=== PATIENT | male | born 1955 | race Caucasian/White ===

== ENCOUNTER 2024-06-14 20:10 | Inpatient (IN) | payer BC, MEDICAID, MEDICARE ==
[~2024-06-14] VITALS: Ht 162.6 cm; Wt 64.1 kg
[~2024-06-14 20:10] MED LIST: NIFE10CA59 MT; [UNRECOGNIZED DRUG - OTHER]
[2024-06-14 20:33] LABS: CHLORIDE 98 mEq/L (98-107); POTASSIUM 4.1 mEq/L (3.5-5.1); SODIUM 133 mEq/L (136-145)
[2024-06-14 20:34] LABS: CALCIUM 9.1 mg/dL (8.7-10.4); CARBON DIOXIDE 26 mEq/L (21-32)
[2024-06-14 20:39] LABS: CREATININE 2.5 mg/dL (0.6-1.3); GLUCOSE 109 mg/dL (70-105); UREA NITROGEN BLOOD 17 mg/dL (9-23)
[2024-06-14 20:41] LABS: ALANINE AMINOTRANSFERASE 15 IU/L (10-49); ASPARTATE AMINOTRANSFERASE 33 IU/L (<34); BILIRUBIN DIRECT 0.2 mg/dL (<=3.0); BILIRUBIN TOTAL 0.4 mg/dL (0.1-1.0); TROPONIN I HIGH SENSITIVITY 27 ng/L (3.0-53)
[2024-06-14 20:42] LABS: HEMATOCRIT. 26.2 % (42.0-52.0); HEMOGLOBIN. 8.7 g/dL (14.0-18.0); MEAN CORPUSCULAR HEMOGLOBIN 31.3 pg (28.0-32.0); MEAN CORPUSCULAR HGB CONC 33.2 g/dL (31.0-37.0); MEAN CORPUSCULAR VOLUME 94.2 fL (80.0-94.0); MEAN PLATELET VOLUME 9.3 fl (7.4-10.4); PLATELET 221 x1000/uL (130-400); RED BLOOD CELL COUNT 2.78 mill/uL (4.7-6.1); RED CELL DISTRIBUTION WIDTH 17.3 % (11.6-14.6); WHITE BLOOD COUNT 8.6 x1000/uL (4.5-11.0)
[2024-06-14 20:43] LABS: DIFFERENTIAL COMMENT 1
[2024-06-14] MEDS: CALCIUM CHLORIDE 1GM/10ML SYR IV ONE (21:11)
[2024-06-14 21:51] LABS: ANISOCYTOSIS 1+; PLATELET ESTIMATE NORMAL
[2024-06-14 22:12] LABS: PROTHROMBIN TIME 10.9 sec (9.6-11.0)
[2024-06-14 22:28] LABS: TROPONIN I HIGH SENSITIVITY 24 ng/L (3.0-53)
[2024-06-14 23:00] VITALS: BP 125/61; PULSE 92; RESP 20; TEMP 36.5292
[2024-06-14] MEDS ORDERED: BUSP10TA3 PO (23:25)
[2024-06-14] MEDS ORDERED: GLIP5TAB22 PO (23:25)
[2024-06-14] MEDS ORDERED: NIFE90TA69 PO (23:25)
[2024-06-14] MEDS ORDERED: TAMS-11 (23:25)
[2024-06-14] MEDS ORDERED: ATOR40TA70 PO (23:25)
[2024-06-15] VITALS (11 sets, daily range): BP systolic 112–148; BP diastolic 61–74; PULSE 78–92; RESP 16–20; TEMP 36.22512–36.89184; O2SAT 99–100
[2024-06-15] MEDS ORDERED: HYDRALAZINE 20MG/ML VIAL IV PRN (00:30)
[2024-06-15] MEDS ORDERED: ONDANSETRON HCL 4MG/2ML INJ IV PRN (00:30)
[2024-06-15] MEDS ORDERED: DEXTROSE 50% WATER 50ML SYRINGE IV PRN (00:30)
[2024-06-15] MEDS ORDERED: NALOXONE HCL 0.4MG/ML VIAL IV PRN (00:45)
[2024-06-15] MEDS: MORPHINE SULFATE 2 MG/ML INJ (NOT FOR IM USE) IV PRN (00:56)
[2024-06-15 05:45] LABS: POTASSIUM 3.8 mEq/L (3.5-5.1)
[2024-06-15 05:47] LABS: CALCIUM 9.6 mg/dL (8.7-10.4)
[2024-06-15 05:51] LABS: CREATININE 2.6 mg/dL (0.6-1.3); HEMATOCRIT 24.3 % (42.0-52.0); HEMOGLOBIN 8.3 g/dL (14.0-18.0); MEAN CORPUSCULAR HEMOGLOBIN 32.7 pg (28.0-32.0); MEAN CORPUSCULAR HGB CONC 34.3 g/dL (31.0-37.0); MEAN CORPUSCULAR VOLUME 95.2 fL (80.0-94.0); PLATELET 211 x1000/uL (130-400); RED BLOOD CELL COUNT 2.55 mill/uL (4.7-6.1); RED CELL DISTRIBUTION WIDTH 17.3 % (11.6-14.6); WHITE BLOOD COUNT 5.2 x1000/uL (4.5-11.0)
[2024-06-15 07:11] LABS: HEPATITIS B SURFACE ANTIGEN NEGATIVE (Negative)
[2024-06-15 07:33] LABS: HEPATITIS C AB NON REACTIVE (Neg) (Negative)
[2024-06-15] MEDS: BLOOD SUGAR DIAGNOSTIC STRIP TEST SCH (07:45)
[2024-06-15] MEDS: HEPARIN 5000 UNITS/ML VIAL SUBCUT SCH (10:16)
[2024-06-15] MEDS: NIFEDIPINE XL 60MG TAB PO SCH (10:45)
[2024-06-15] MEDS: TAMSULOSIN HCL 0.4MG SR CAPSULE PO SCH (10:45)
[2024-06-15] MEDS ORDERED: IPRATROPIUM/ALBUTEROL 0.5-3(2.5)MG/3ML NEB HHN PRN (10:45)
[2024-06-15] MEDS: INSULIN LISPRO 100 UNITS/ML SUBCUT SCH (13:10)
[2024-06-15 13:11] LABS: TROPONIN I HIGH SENSITIVITY 9 ng/L (3.0-53)
[2024-06-15] MEDS: SODIUM CHLORIDE 0.9% 3ML FLUSH IVF SCH (14:00)
[2024-06-15 22:15] LABS: TROPONIN I HIGH SENSITIVITY 21 ng/L (3.0-53)
[2024-06-15] MEDS: NITROGLYCERIN 0.4MG TABLET SL SL PRN (22:44)
[2024-06-16] VITALS: BP 123/70; PULSE 82; RESP 18; TEMP 36.6696; O2SAT 100
[2024-06-16 04:00] VITALS: BP 147/70; PULSE 74; RESP 20; TEMP 36.55848; O2SAT 100
[2024-06-16 07:30] LABS: POTASSIUM 3.7 mEq/L (3.5-5.1)
[2024-06-16 07:34] LABS: T4 FREE 1.36 ng/dL (0.89-1.76); THYROID STIMULATING HORMONE 0.68 uIU/mL (0.55-4.78)
[2024-06-16 07:36] LABS: CREATININE 2.2 mg/dL (0.6-1.3)
[2024-06-16 08:00] VITALS: BP 143/71; PULSE 76; RESP 20; TEMP 36.55848; O2SAT 100
[2024-06-16 08:11] LABS: BASOPHILS % 1.1 % (0.0-2.0); EOSINOPHILS % 2.8 % (0.0-5.0); HEMATOCRIT. 27.6 % (42.0-52.0); HEMOGLOBIN. 9.1 g/dL (14.0-18.0); MEAN CORPUSCULAR HEMOGLOBIN 31.5 pg (28.0-32.0); MEAN CORPUSCULAR HGB CONC 32.9 g/dL (31.0-37.0); MEAN CORPUSCULAR VOLUME 95.7 fL (80.0-94.0); MEAN PLATELET VOLUME 8.9 fl (7.4-10.4); MONOCYTES % 9.4 % (2.0-8.0); NEUTROPHILS % 47.7 % (40.0-76.0); PLATELET 227 x1000/uL (130-400); RED BLOOD CELL COUNT 2.89 mill/uL (4.7-6.1); RED CELL DISTRIBUTION WIDTH 17.7 % (11.6-14.6)
[2024-06-16] MEDS: ASPIRIN 81MG TABLET PO SCH (09:26)
[2024-06-16] MEDS: BUSPIRONE HCL 10MG TABLET PO SCH (09:27)
[2024-06-16 12:00] VITALS: BP 144/70; PULSE 87; RESP 20; TEMP 36.44736; O2SAT 100
[2024-06-16] MEDS: ISOSORBIDE DINITRATE 10MG TABLET PO SCH (12:28)
[2024-06-16 16:00] VITALS: BP 114/66; PULSE 87; RESP 20; TEMP 36.61404; O2SAT 100
[2024-06-16 20:00] VITALS: BP 95/52; PULSE 99; RESP 18; TEMP 36.89184; O2SAT 99
[2024-06-16] MEDS: ATORVASTATIN CALCIUM 40MG TABLET PO SCH (20:25)
[2024-06-17] VITALS (9 sets, daily range): BP systolic 108–142; BP diastolic 58–80; PULSE 81–103; RESP 18–20; TEMP 36.114–37.00296; O2SAT 97–100
[2024-06-17 11:43] LABS: BASOPHILS % 0.9 % (0.0-2.0); EOSINOPHILS % 2.3 % (0.0-5.0); HEMATOCRIT. 27.9 % (42.0-52.0); HEMOGLOBIN. 9.5 g/dL (14.0-18.0); LYMPHOCYTES % 40.1 % (20.0-50.0); MEAN CORPUSCULAR HEMOGLOBIN 32.7 pg (28.0-32.0); MEAN CORPUSCULAR HGB CONC 33.9 g/dL (31.0-37.0); MEAN CORPUSCULAR VOLUME 96.5 fL (80.0-94.0); MONOCYTES % 8.7 % (2.0-8.0); PLATELET 256 x1000/uL (130-400); RED BLOOD CELL COUNT 2.89 mill/uL (4.7-6.1); RED CELL DISTRIBUTION WIDTH 17.4 % (11.6-14.6); WHITE BLOOD COUNT 5.5 x1000/uL (4.5-11.0)
[2024-06-17] MEDS ORDERED: LIDOCAINE HCL 1% 10 MG/ML 10ML VIAL ONE (13:04)
[2024-06-17] MEDS: ACETAMINOPHEN 325MG TABLET PO PRN (13:19)
[2024-06-17] MEDS: INFLUENZA VACCINE 05/PF 0.5 ML SYRINGE IM ONE (15:00)
[2024-06-17] MEDS ORDERED: IOHEXOL-350 100 ML BOTTLE ONE (15:05)
[2024-06-17 17:10] LABS: POTASSIUM 3.7 mEq/L (3.5-5.1)
[2024-06-17 17:11] LABS: CALCIUM 9.2 mg/dL (8.7-10.4)
[2024-06-17 17:16] LABS: CREATININE 2.3 mg/dL (0.6-1.3)
[2024-06-18] VITALS: BP 119/74; PULSE 107; RESP 20; TEMP 36.33624; O2SAT 100
[2024-06-18] MEDS: TRAMADOL 50MG TABLET PO PRN (00:33)
[2024-06-18 04:00] VITALS: BP 135/80; PULSE 100; RESP 19; TEMP 36.61404; O2SAT 99
[2024-06-18 08:00] VITALS: BP 138/78; PULSE 92; RESP 16; TEMP 36.114; O2SAT 97
[2024-06-18 09:52] LABS: POTASSIUM 3.6 mEq/L (3.5-5.1)
[2024-06-18 09:53] LABS: CALCIUM 9.1 mg/dL (8.7-10.4)
[2024-06-18 12:00] VITALS: BP 138/72; PULSE 99; RESP 20; TEMP 36.78072; O2SAT 97
[2024-06-18] MEDS ORDERED: ISOS10TA2 MT (12:29)
[2024-06-18 12:38] VITALS: BP 138/78; PULSE 92; TEMP 97; O2SAT 97
[2024-06-18 13:45] VITALS: PULSE 92
== END 2024-06-18 16:10 | disposition home or self-care (01) | DRG 302 ==
LOC: ER 20:10 → 7WST 22:33
PROVIDERS: ADMIT Internal Medicine; ATTEND Internal Medicine
PROC: 5A1D70Z Performance of Urinary Filtration, Intermittent, Less than 6 Hours Per Day (ICD-10-PCS; 2024-06-15)
PROC: 02H633Z Insertion of Infusion Device into Right Atrium, Percutaneous Approach (ICD-10-PCS; principal; 2024-06-17)
PROC: B548ZZA Ultrasonography of Superior Vena Cava, Guidance (ICD-10-PCS; 2024-06-17)
PROC: 5A1D70Z Performance of Urinary Filtration, Intermittent, Less than 6 Hours Per Day (ICD-10-PCS; 2024-06-17)
DX: I25.110 Atherosclerotic heart disease of native coronary artery with unstable angina pectoris (principal); N18.6 End stage renal disease; I13.2 Hypertensive heart and chronic kidney disease with heart failure and with stage 5 chronic kidney disease, or end stage renal disease; I42.0 Dilated cardiomyopathy; I44.7 Left bundle-branch block, unspecified; D64.9 Anemia, unspecified; E11.22 Type 2 diabetes mellitus with diabetic chronic kidney disease; E78.00 Pure hypercholesterolemia, unspecified; R09.89 Other specified symptoms and signs involving the circulatory and respiratory systems; R07.89 Other chest pain; I50.9 Heart failure, unspecified; Z86.73 Personal history of transient ischemic attack (TIA), and cerebral infarction without residual deficits; Z91.158 Patient's noncompliance with renal dialysis for other reason; Z95.1 Presence of aortocoronary bypass graft; Z79.84 Long term (current) use of oral hypoglycemic drugs; Z99.2 Dependence on renal dialysis; Z79.899 Other long term (current) drug therapy
CPT/HCPCS: 36415; 36573; 71045; 71275; 74176; 80048; 80061; 80076; 82962; 83036; 83880; 84439; 84443; 84484; 85025; 85027; 85379; 86705; 87340; 90686; 90935; 93005; 93306; 99291; C1725; J1644; J1815; J2270; J3490; Q9967